=== PATIENT | female | born 1950 | race Caucasian/White ===

== ENCOUNTER 2020-04-17 10:23 | Emergency (ER) | payer MEDICARE, OTHER ==
[~2020-04-17] VITALS: Ht 162.6 cm; Wt 82.6 kg
[2020-04-17 10:54] LABS: URINE BILIRUBIN NEGATIVE (Negative); URINE BLOOD 1+ (Negative); URINE CLARITY CLEAR; URINE COLOR YELLOW; URINE GLUCOSE-RANDOM NEGATIVE (Negative); URINE KETONES NEGATIVE (Negative); URINE LEUKOCYTES-REFLEX NEGATIVE (Negative); URINE NITRITE-REFLEX NEGATIVE (Negative); URINE PROTEIN NEGATIVE (Negative); URINE UROBILINOGEN 0.2 E.U./dl (0.2-1.0)
[2020-04-17] MEDS ORDERED: EQUETRO100 MG PO ×4 (10:55→11:58)
[2020-04-17] MEDS ORDERED: COZAAR 25 MG TA25 M1 PO ×2 (10:56→11:58)
[2020-04-17] MEDS ORDERED: SIMVASTATIN80 MG PO ×2 (10:56→11:58)
[2020-04-17] MEDS ORDERED: POLY-IRON150 MG PO ×2 (10:56→11:58)
[2020-04-17] MEDS ORDERED: OSPHENA60 MG PO (10:56)
[2020-04-17] MEDS ORDERED: CALCIUM500 MG PO (10:57)
[2020-04-17] MEDS ORDERED: NEO-POLYMYXIN-H10 ML EA. EAR (10:59)
[2020-04-17] MEDS ORDERED: ALLERGY MEDICAT25 MG PO (10:59)
[2020-04-17 11:03] LABS: ABSOLUTE BASOPHILS 0.1 thou/uL (0.0-0.2); ABSOLUTE EOSINOPHILS 0.1 thou/uL (0.0-0.7); ABSOLUTE LYMPHOCYTES 2.1 thou/uL (0.8-5.3); ABSOLUTE MONOCYTES 0.7 thou/uL (0.0-1.2); ABSOLUTE NEUTROPHILS 6.2 thou/uL (1.6-8.1); BASOPHILS 0.6 %; EOSINOPHILS 0.6 %; HEMATOCRIT 37.4 % (37.0-47.0); HEMOGLOBIN 12.9 gm/dL (12.0-15.0); LYMPHOCYTES 23.3 %; MCH 32.4 pg (26.0-34.0); MCHC 34.5 g/dL (28.0-37.0); MCV 93.8 fL (80.0-100.0); MONOCYTES 7.8 %; MPV 7.2 fl. (7.2-11.1); NUCLEATED RBCS 0 /100WBC; PLATELET COUNT* 309 thou/uL (150-400); POLYS 67.7 %; RBC 3.98 mil/uL (4.20-5.00); RDW-CV 12.8 % (10.5-14.5); WBC 9.1 thou/uL (4.0-11.0)
[2020-04-17 11:08] LABS: BACTERIA-REFLEX 1-9 Few /HPF (None Seen); CASTS None Seen /LPF (None Seen); CRYSTALS None Seen /LPF (None Seen); MUCUS None Seen strn/LPF (None Seen); SQUAMOUS 4-10 Moderate /LPF (0-3); URINE RBC 3-10 Few /HPF (0-2); URINE WBC-REFLEX 0-5 Rare /HPF (0-5)
[2020-04-17 11:11] LABS: CALCIUM 8.7 mg/dL (8.5-10.1); CREATININE 0.9 mg/dL (0.6-1.3); POTASSIUM 4.1 mmol/L (3.5-5.1)
[2020-04-17 11:21] LABS: ALBUMIN 3.7 g/dL (3.4-5.0); TOTAL BILIRUBIN 0.2 mg/dL (<0.1-1.0); TOTAL PROTEIN 7.4 g/dL (6.4-8.2)
[2020-04-17] MEDS ORDERED: KEFLEX500 M1 PO (11:58)
[2020-04-17 12:16] VITALS: BP 127/57
== END 2020-04-17 12:00 | disposition home or self-care (01) ==
LOC: M.ERS 10:23
PROVIDERS: Emergency Medicine Emergency Medical Services
DX: N39.0 Urinary tract infection, site not specified (principal); K62.5 Hemorrhage of anus and rectum; Z79.899 Other long term (current) drug therapy